=== PATIENT | female | born 1960 | race Two or more races ===

== ENCOUNTER 2016-07-01 12:06 | Emergency (ER) | payer OTHER ==
[2016-07-01] MEDS ORDERED: ONDANSETRON 4 MG/2ML 2 ML VIAL ONE (12:47)
[2016-07-01] MEDS ORDERED: MORPHINE SULFATE 4 MG/ML SYRINGE ONE (12:47)
[2016-07-01 12:50] LABS: SPECIFIC GRAVITY 1.005 (1.001-1.030); URINE APPEARANCE CLEAR; URINE BILIRUBIN NEGATIVE (NEGATIVE); URINE BLOOD 2+ (NEGATIVE); URINE COLOR YELLOW; URINE GLUCOSE (UA) NEGATIVE (NEGATIVE); URINE LEUKOCYTE ESTERASE NEGATIVE (NEGATIVE); URINE NITRITE NEGATIVE (NEGATIVE); URINE PROTEIN NEGATIVE (NEGATIVE); URINE UROBILINOGEN NORMAL (0-1 mg/dl)
[2016-07-01 12:57] LABS: BASO % 0.5 % (0.2-1.0); EOS # 0.1 (0.0-0.5); EOS % 2.1 % (0.9-2.9); HEMATOCRIT 43.8 % (37.0-47.0); HEMOGLOBIN 14.9 gm/l (12.0-16.0); IMM NEUT% 0.2 % (0-1); LYMPH # 2.2 (1.0-4.8); LYMPH % 37.9 % (15-45); MEAN CELL VOLUME 86.7 fl (81.0-99.0); MEAN CORPUSCULAR HEMOGLOBIN 29.5 pg (27.0-31.0); MONO # 0.4 (0.0-0.8); MONO % 7.3 % (4-12); PLATELET COUNT 261 K/mm3 (130-400); URINE BACTERIA TRACE; URINE EPITHELIAL CELLS FEW /hpf; URINE WBC RARE /hpf
[2016-07-01 13:11] LABS: ALB/GLOB RATIO 1.3 (>1.0); ALBUMIN 4.1 gm/dL (3.5-5.7); CALCIUM 9.1 mg/dL (8.6-10.3)
--- NOTE | 2016-07-01 14:10 | US ---
ABDOMINAL-LIMITED History: Right upper quadrant pain with nausea. Findings: Gallbladder: There are multiple echogenic shadowing foci seen within the lumen of the gallbladder consistent with gallstones. No wall thickening or pericholecystic fluid is visualized. A reported negative sonographic Jerry sign was elicited during the course of the exam. Biliary tree: The common hepatic duct measures 2 millimeters adjacent to the hepatic artery. Liver: the visualized liver is homogeneous. No masses or evidence of intra-hepatic biliary dilatation are seen. Impression: 1. Cholelithiasis without associated wall thickening or biliary dilatation.
== END 2016-07-01 15:18 | disposition home or self-care (01) ==
LOC: ED 12:06
DX: K80.20 Calculus of gallbladder without cholecystitis without obstruction (principal)